=== PATIENT | male | born 1930 | race Caucasian/White ===

== ENCOUNTER 2017-05-28 08:22 | Day surgery (SDC) | payer MEDICARE ==
[~2017-05-28] VITALS: Ht 180.3 cm; Wt 88.6 kg
[~2017-05-28 08:22] MED LIST: ALPR-138 PO; ASPI1TAB7 PO; COZA100T PO; GLIP5 PO; LEVEMIR SQ; METF850T PO; NOVOLOGP2 SQ; SIMV10 PO; TAB-TAB PO
[2017-05-28] MEDS ORDERED: IOHEXOL 350 MG/ML 10 ML VIAL (for RAD DIAG) IVCONTRAST ONE (08:23)
[2017-05-28 08:40] VITALS: BP 156/88; PULSE 94; RESP 18; TEMP 97.6; O2SAT 95
[2017-05-28] MEDS ORDERED: GLIP5TAB8 PO (08:59)
[2017-05-28] MEDS ORDERED: MULT1TAB46 (08:59)
[2017-05-28] MEDS ORDERED: ALPR.25 PO (08:59)
[2017-05-28] MEDS ORDERED: ASPI-516 CHEW (08:59)
[2017-05-28] MEDS ORDERED: NOVOLOGP2 SQ (08:59)
[2017-05-28] MEDS ORDERED: METF1000 PO (08:59)
[2017-05-28] MEDS ORDERED: LEVEMIR SQ (08:59)
[2017-05-28] MEDS ORDERED: COZA100T PO (08:59)
[2017-05-28] MEDS ORDERED: SIMV10TA PO (08:59)
[2017-05-28] MEDS ORDERED: LACTATED RINGER'S 1000 ML IV PRN (09:00)
[2017-05-28] MEDS ORDERED: SODIUM CHLORID 0.9% 500 ML IV PRN (09:00)
[2017-05-28] MEDS ORDERED: METOPROLOL TARTRATE 25 MG TAB PO PRN (09:00)
[2017-05-28] MEDS ORDERED: POVIDONE IODINE 5% (ANTISEPSIS KIT) 4 APPLICATIONS EACH NARE PRN (09:00)
[2017-05-28] MEDS ORDERED: SODIUM CHLOR 0.9% 1000 ML INJ 1,000 ML IV SCH (09:00)
[2017-05-28] MEDS ORDERED: INSULIN HUMAN REGULAR 1,000 UNITS/10 ML VIAL SQ PRN (09:00)
[2017-05-28] MEDS ORDERED: CHLORHEXIDINE GLUCONATE 2 % 1 PACK (2 CLOTHS) TOPICAL PRN (09:00)
[2017-05-28 09:22] LABS: AUTOMATED NEUTROPHIL # 3.6 TH/MM3 (1.8-7.7); BASOPHIL # 0.1 TH/MM3 (0-0.2); BASOPHIL % 0.9 % (0.0-2.0); EOSINOPHIL # 0.2 TH/MM3 (0-0.4); EOSINOPHIL % 2.5 % (0.0-4.0); HEMATOCRIT 41.1 % (39.0-51.0); HEMOGLOBIN 14.3 GM/DL (13.0-17.0); LYMPH % 32.1 % (9.0-44.0); MEAN CORPUSCULAR HEMOGLOBIN 30.7 PG (27.0-34.0); MEAN CORPUSCULAR HGB CONC 34.9 % (32.0-36.0); MEAN PLATELET VOLUME 9.9 FL (7.0-11.0); MONOCYTE # 0.5 TH/MM3 (0-0.9); NEUT % 56.5 % (16.0-70.0); PLATELET COUNT 199 TH/MM3 (150-450); RED BLOOD COUNT 4.67 MIL/MM3 (4.50-5.90); RED CELL DISTRIBUTION WIDTH 13.4 % (11.6-17.2); WHITE BLOOD COUNT 6.4 TH/MM3 (4.0-11.0)
[2017-05-28 09:32] LABS: INTERNATIONAL NORMALIZED RATIO 1.2 RATIO; PROTHROMBIN TIME - PATIENT 11.7 SEC (9.8-11.6)
[2017-05-28 09:39] LABS: BICARBONATE 23.1 MEQ/L (21.0-32.0); CALCIUM 9.2 MG/DL (8.5-10.1); CREATININE 0.95 MG/DL (0.60-1.30)
[2017-05-28] MEDS ORDERED: ceFAZolin 2 GM PREMIX 50 ML ONE (09:57)
[2017-05-28] MEDS ORDERED: DO NOT ADM ANY ANTICOAGULANT DRUGS PRN (13:35)
[2017-05-28] MEDS ORDERED: *ENALAPRILAT 1.25 MG/ML VIAL PERIprocedural Use ONLY ONE (13:49)
--- NOTE | 2017-05-28 14:20 | PD.RAD ---
Post CT Procedure Prog Note Pre Procedure Diagnosis: (1) Right renal mass Post Procedure Diagnosis: (1) Right renal mass Procedure Date: May 28, 2017 Supervising Radiologist: Cecilio Walker Estimated blood loss: none Anesthesia: General Plan of Activity Patient to Unit: PACU Patient Condition: Good See PACS Report for procedural detail/treatment Biopsy Imaging Guidance: CT Side: Right Biopsy Procedure: Kidney Specimen: Core Biopsy Additional Detail: with cryoablation Cecilio Walker MD May 28, 2017 14:20
[2017-05-28] MEDS ORDERED: *morphine SULFATE 4 MG/ML PERIprocedure ONLY ONE (14:26)
[2017-05-28 14:30] VITALS: TEMP 97.6
[2017-05-28] MEDS ORDERED: HYDROmorphone HCL 2 MG TAB PO PRN (15:00)
[2017-05-28] MEDS ORDERED: LOSARTAN 50 MG TAB PO ONE (15:00)
[2017-05-28 15:08] LABS: AUTOMATED NEUTROPHIL # 4.9 TH/MM3 (1.8-7.7); BASOPHIL % 0.3 % (0.0-2.0); EOSINOPHIL % 0.6 % (0.0-4.0); HEMATOCRIT 40.1 % (39.0-51.0); HEMOGLOBIN 14.1 GM/DL (13.0-17.0); LYMPH % 18.7 % (9.0-44.0); LYMPHOCYTE # 1.2 TH/MM3 (1.0-4.8); MEAN CORPUSCULAR HGB CONC 35.3 % (32.0-36.0); MEAN PLATELET VOLUME 9.8 FL (7.0-11.0); MONO % 2.7 % (0.0-8.0); MONOCYTE # 0.2 TH/MM3 (0-0.9); NEUT % 77.7 % (16.0-70.0); PLATELET COUNT 174 TH/MM3 (150-450); RED BLOOD COUNT 4.55 MIL/MM3 (4.50-5.90); RED CELL DISTRIBUTION WIDTH 13.7 % (11.6-17.2); WHITE BLOOD COUNT 6.4 TH/MM3 (4.0-11.0)
[2017-05-28 15:10] VITALS: BP 159/81; PULSE 81; RESP 18; O2SAT 94
--- NOTE | 2017-05-28 15:18 | RADRPT ---
EXAM DATE/TIME: 05/28/2017 11:13 [facility] COMPARISON: No previous studies available for comparison. INDICATIONS : Right renal mass BIOPSY SITE: Right kidney Anesthesia and pain control was provided by the Anesthesia department. Vancomycin within 2 hrs of procedure, Ancef (or alternative) within 1 hr of procedure start. DEVICE(S): 1.) 18 Fr Temno core biopsy needle MEDICAL HISTORY : Hypertension. Cardiovascular disease. Diabetes mellitus type 1. SURGICAL HISTORY : None. ENCOUNTER: Initial ACUITY: 1 day PAIN SCORE: 0/10 LOCATION: Right flank A total of one core specimen(s) were obtained and sent to the laboratory for pathologic evaluation. PROCEDURE: 1. CT guided renal biopsy. Prior to the procedure informed consent was obtained. Any appropriate prior imaging studies were rev iewed. Using automated exposure control and adjustment of the mA and/or kV according to patient size, radiat ion dose was kept as low as reasonably achievable to obtain optimal diagnostic quality images. DICOM format image data is available electronically for review and comparison. The site was prepped in a sterile fashion. Full sterile technique was used, including cap, mask, rehana rile gloves and gown and a large sterile sheet. Hand hygiene and 2% chlorhexidine and/or betadine/al cohol prep was utilized per protocol for cutaneous antisepsis. The skin and subcutaneous tissues wer e infiltrated with local anesthetic solution. With CT guidance the previously identified target was localized. Biopsy was performed using the presc ribed needle as above. Adequate hemostasis was obtained with compression at the puncture site. Follow-up CT scan reveals no hemorrhage. The patient tolerated the procedure well and there were no complications. He underwent cryoablation t reatment of the lesion in the same setting. See that separate report for complete details The patient was returned to the Radiology Outpatient Unit in stable condition. CONCLUSION: Uncomplicated CT guided core biopsy of solid right renal mass as described above. Cecilio Walker MD on May 28, 2017 at 15:13 Board Certified Radiologist. This report was verified electronically.
[2017-05-28 15:40] VITALS: BP 162/86; PULSE 78; RESP 16; O2SAT 97
--- NOTE | 2017-05-28 15:50 | RADRPT ---
EXAM DATE/TIME: 05/28/2017 11:13 INDICATIONS : Right renal mass Anesthesia and pain control was provided by the Anesthesia department. Prophylactic antibiotics were administered with appropriate pre-procedure timing. DEVICE(S): 1.) PERC cryoablation probe 1.7 x2 MEDICAL HISTORY : Hypertension. Diabetes mellitus type 1. Cardiovascular disease. SURGICAL HISTORY : None. ENCOUNTER: Initial ACUITY: 1 day PAIN SCORE: 0/10 LOCATION: Right flank PROCEDURE : 1. CT guided cryoablation. Under sterile conditions and using aseptic technique with CT guidance the mass was localized and sati sfactory approach was taken to access the lesion. Using automated exposure control and adjustment of the mA and/or kV according to patient size, radiation dose was kept as low as reasonably achievable to obtain optimal diagnostic quality images. DICOM format image data is available electronically for review and comparison. [employer] Cryoprobes were employed using percutaneous technique employing the prescribed probes. Biopsy was accomplished in the same setting. Please see that separate report for complete details. F ollowing biopsy, cryoablation was completed. A freeze-thaw, freeze-thaw technique was employed and se rial imaging demonstrated an ice ball encompassing the entire lesion. Post procedure images demonstr ate expected postoperative changes without evidence of hematoma. CONCLUSION: Uncomplicated cryoablation as above. Cecilio Walker MD on May 28, 2017 at 15:45 Board Certified Radiologist. This report was verified electronically.
[2017-05-28 16:10] VITALS: BP 167/81; PULSE 91; RESP 16; O2SAT 98
[2017-05-28 16:34] LABS: AUTOMATED NEUTROPHIL # 6.8 TH/MM3 (1.8-7.7); BASOPHIL % 0.4 % (0.0-2.0); EOSINOPHIL % 0.2 % (0.0-4.0); HEMATOCRIT 43.7 % (39.0-51.0); HEMOGLOBIN 14.9 GM/DL (13.0-17.0); LYMPH % 12.8 % (9.0-44.0); MEAN CELL VOLUME 88.8 FL (80.0-100.0); MEAN CORPUSCULAR HEMOGLOBIN 30.3 PG (27.0-34.0); MEAN CORPUSCULAR HGB CONC 34.1 % (32.0-36.0); MEAN PLATELET VOLUME 9.8 FL (7.0-11.0); MONO % 1.9 % (0.0-8.0); MONOCYTE # 0.2 TH/MM3 (0-0.9); NEUT % 84.7 % (16.0-70.0); PLATELET COUNT 176 TH/MM3 (150-450); RED BLOOD COUNT 4.92 MIL/MM3 (4.50-5.90); RED CELL DISTRIBUTION WIDTH 13.6 % (11.6-17.2)
--- NOTE | 2017-05-28 19:36 | EKG ---
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 Clinical corrolation is advised. ABNORMAL E CG PREVIOUS TRACING : 02/03/2012 16.13 DOCTOR: Emperatriz Tirado Interpretating Date/Time 05/28/2017 19:35:16
== END 2017-05-28 17:09 | disposition home or self-care (01) ==
LOC: HROP 08:22 → HRIP 08:29 → HROP 17:09
PROVIDERS: ATTEND Urology
DX: N28.89 Other specified disorders of kidney and ureter (principal); I10 Essential (primary) hypertension; I25.10 Atherosclerotic heart disease of native coronary artery without angina pectoris; E11.9 Type 2 diabetes mellitus without complications; Z79.4 Long term (current) use of insulin
CPT/HCPCS: 50200; 50593; 77012; 77013; 80048; 82948; 85025; 85610; 85730; 88305; 93005; C2618; J0690; J2270; J3010; J7030; Q9967

== ENCOUNTER 2017-06-04 13:05 | Day surgery (SDC) | payer MEDICARE ==
[~2017-06-04 13:05] MED LIST changes: -ALPR-138 PO; +ALPR.25 PO; +ASPI-516 CHEW; -ASPI1TAB7 PO; -GLIP5 PO; +GLIP5TAB8 PO; +METF1000 PO; -METF850T PO; +MULT1TAB46; -SIMV10 PO; +SIMV10TA PO; -TAB-TAB PO
--- NOTE | 2017-06-05 11:38 | RADRPT ---
EXAM DATE/TIME: 06/04/2017 00:00 [facility] COMPARISON : INDICATIONS : FOLLOW UP RENAL CRYOABLATION OBJECTIVE: Temperature: 97.7 Heart Rate: 101 Blood Pressure: 161/79 Respiratory: 20 Oximetry: 100 PNEUMONIA VACCINE: HISTORY OF PRESENT ILLNESS: 86 year-old post right renal mass biopsy and cryoablation. PAST MEDICAL HISTORY : RIGHT RENAL MASS Hypertension. Diabetes mellitus 1. CAD NKDA PHYSICAL EXAMINATION: A well-developed, well-nourished elderly gentleman in no acute distress. IMAGING STUDIES: Cryoablation images from 05-28-2017 were reviewed demonstrating successful ablation of the mass lesion in the anterior midpole of the right kidney. A ASSESSMENT: 1. Patient doing well post cryoablation. 2. Mr. Garcia did have questions about whether this procedure cured him of his disease. I explaine d to him that the postprocedural images look good however, the followup images of the verma assessing t he efficacy of treatment. He seemed somewhat curved that I could not give him a definitive answer. I explained to him that the only definitive procedure would be nephrectomy. I also explained that if th ere is residual tumor after 3 months stand, repeat cryoablation could be performed. PLAN: Followup imaging with Dr. Harkins in 3 months. TIME SPENT: 20 minutes Pilo Marley MD on June 05, 2017 at 11:30 Board Certified Radiologist. This report was verified electronically.
== END 2017-06-04 13:45 | disposition home or self-care (01) ==
LOC: HROP 13:05
PROVIDERS: ATTEND Radiology Body Imaging
DX: N28.89 Other specified disorders of kidney and ureter (principal); I10 Essential (primary) hypertension; E11.9 Type 2 diabetes mellitus without complications; I25.10 Atherosclerotic heart disease of native coronary artery without angina pectoris
CPT/HCPCS: 99212; G0463